=== PATIENT | female | born 1965 | race African-American/Black ===

== ENCOUNTER 2024-04-12 06:35 | Emergency (ER) | payer MEDICAID ==
[~2024-04-12] VITALS: Ht 157.5 cm; Wt 54.0 kg
[~2024-04-12 06:35] MED LIST: ALBU18HF2 IH; ASPI-1497 MT; CARV3.1242 MT; FLUT1DIS3 INH; FURO-151 MT; NAPR220C61 MT; NYST15PO4 TP
[2024-04-12] MEDS: PREDNISONE 20MG TABLET PO STA (06:55)
[2024-04-12 07:40] VITALS: PULSE 78; RESP 16; O2SAT 98
[2024-04-12] MEDS: IPRATROPIUM BROMIDE (0.02%) 0.5MG/2.5ML NEB HHN STA (07:40)
[2024-04-12] MEDS: ALBUTEROL (0.083%) 2.5MG/3ML NEB HHN STA (07:40)
[2024-04-12 07:58] LABS: BASOPHILS % 0.9 % (0.0-2.0); EOSINOPHILS % 5.7 % (0.0-5.0); HEMATOCRIT. 42.9 % (36.0-48.0); HEMOGLOBIN. 13.6 g/dL (12.0-16.0); LYMPHOCYTES % 35.1 % (20.0-50.0); MEAN CORPUSCULAR HEMOGLOBIN 25.6 pg (28.0-32.0); MEAN CORPUSCULAR HGB CONC 31.8 g/dL (31.0-37.0); MEAN CORPUSCULAR VOLUME 80.7 fL (81.0-99.0); MEAN PLATELET VOLUME 9.3 fl (7.4-10.4); MONOCYTES % 6.2 % (2.0-8.0); NEUTROPHILS % 52.1 % (40.0-76.0); PLATELET 241 x1000/uL (130-400); RED BLOOD CELL COUNT 5.32 mill/uL (4.2-5.4); RED CELL DISTRIBUTION WIDTH 17.7 % (11.6-14.6); WHITE BLOOD COUNT 7.8 x1000/uL (4.5-11.0)
[2024-04-12 08:00] VITALS: BP 151/89; PULSE 94; RESP 19; TEMP 97.7
[2024-04-12 08:04] LABS: CHLORIDE 109 mEq/L (98-107); POTASSIUM 4.1 mEq/L (3.5-5.1); SODIUM 140 mEq/L (136-145)
[2024-04-12] MEDS ORDERED: ALBU6.7H15 INH (08:04)
[2024-04-12 08:05] LABS: CARBON DIOXIDE 27 mEq/L (21-32)
[2024-04-12 08:06] LABS: CALCIUM 10.6 mg/dL (8.7-10.4)
[2024-04-12 08:10] LABS: CREATININE 1.1 mg/dL (0.6-1.0); GLUCOSE 103 mg/dL (70-105)
[2024-04-12 08:11] LABS: UREA NITROGEN BLOOD 14 mg/dL (9-23)
[2024-04-12] MEDS ORDERED: P20 MT (08:16)
== END 2024-04-12 09:10 | disposition home or self-care (01) ==
LOC: ER 06:35
DX: J44.9 Chronic obstructive pulmonary disease, unspecified (principal); I11.0 Hypertensive heart disease with heart failure; I50.9 Heart failure, unspecified; E11.9 Type 2 diabetes mellitus without complications; Z72.0 Tobacco use
CPT/HCPCS: 99284; 71045; 80048; 85025; 36415; 94640; J7512

== ENCOUNTER 2024-06-14 20:57 | Inpatient (IN) | payer MEDICAID ==
[~2024-06-14] VITALS: Ht 162.6 cm; Wt 46.1 kg
[~2024-06-14 20:57] MED LIST changes: +ALBU6.7H15 INH; -NYST15PO4 TP; +P20 MT
[2024-06-14 21:30] VITALS: PULSE 112; RESP 20; O2SAT 99
[2024-06-14] MEDS: ALBUTEROL (0.083%) 2.5MG/3ML NEB HHN STA (21:30)
[2024-06-14] MEDS: IPRATROPIUM BROMIDE (0.02%) 0.5MG/2.5ML NEB HHN STA (21:30)
[2024-06-14] MEDS: METHYLPREDNISOLONE SOD SUCC 125MG/2ML (ACT-O-VIAL) IV STA (21:33)
[2024-06-14] MEDS: MAGNESIUM 2 G PREMIX 50 ML IV STA (21:33)
[2024-06-14 21:46] LABS: BASOPHILS % 0.7 % (0.0-2.0); EOSINOPHILS % 1.2 % (0.0-5.0); HEMATOCRIT. 44.1 % (36.0-48.0); HEMOGLOBIN. 13.9 g/dL (12.0-16.0); LYMPHOCYTES % 13.2 % (20.0-50.0); MEAN CORPUSCULAR HEMOGLOBIN 25.3 pg (28.0-32.0); MEAN CORPUSCULAR HGB CONC 31.4 g/dL (31.0-37.0); MEAN CORPUSCULAR VOLUME 80.5 fL (81.0-99.0); MEAN PLATELET VOLUME 9.7 fl (7.4-10.4); MONOCYTES % 3.5 % (2.0-8.0); NEUTROPHILS % 81.4 % (40.0-76.0); PLATELET 335 x1000/uL (130-400); RED BLOOD CELL COUNT 5.48 mill/uL (4.2-5.4); RED CELL DISTRIBUTION WIDTH 17.2 % (11.6-14.6); WHITE BLOOD COUNT 9.1 x1000/uL (4.5-11.0)
[2024-06-14 21:48] LABS: BG BASE EXCESS -1.4 mmol/L (-2.0-2.0); BG CARBOXYHEMOGLOBIN 0.6 % (0.5-1.5); BG DEOXYHEMOGLOBIN 2.7 % (0.0-5.0); BG FRACTION INSPIRED OXYGEN 28; BG HCO3 ACT 22.2 mmol/L (22.0-26.0); BG METHEMOGLOBIN 0.3 % (0.0-1.5); BG OXYGEN SATURATION 97.3 % (92.0-98.5); BG OXYHEMOGLOBIN 96.4 % (94.0-97.0); BG PCO2 34.3 mmHg (35.0-45.0); BG PH 7.429 (7.350-7.450); BG PO2 91.8 mmHg (75.0-100.0); BG SAMPLE SITE RIGHT RADIAL; BG TOTAL HEMOGLOBIN 14.4 g/dL (12.0-18.0); BG VENT MODE NASAL CANNULA
[2024-06-14 21:52] LABS: CHLORIDE 113 mEq/L (98-107); POTASSIUM 6.1 mEq/L (3.5-5.1); SODIUM 141 mEq/L (136-145)
[2024-06-14 21:53] LABS: CALCIUM 10.7 mg/dL (8.7-10.4); CARBON DIOXIDE 25 mEq/L (21-32)
[2024-06-14 21:58] LABS: CREATININE 0.9 mg/dL (0.6-1.0); GLUCOSE 129 mg/dL (70-105); UREA NITROGEN BLOOD 9 mg/dL (9-23)
[2024-06-14 22:02] LABS: TROPONIN I HIGH SENSITIVITY 48 ng/L (3.0-34)
[2024-06-14 23:24] LABS: CHLORIDE 114 mEq/L (98-107); POTASSIUM 4.1 mEq/L (3.5-5.1); SODIUM 142 mEq/L (136-145)
[2024-06-14 23:25] LABS: CALCIUM 10.4 mg/dL (8.7-10.4); CARBON DIOXIDE 24 mEq/L (21-32)
[2024-06-14 23:30] LABS: CREATININE 0.9 mg/dL (0.6-1.0); GLUCOSE 130 mg/dL (70-105); UREA NITROGEN BLOOD 9 mg/dL (9-23)
[2024-06-15] MEDS ORDERED: IPRATROPIUM/ALBUTEROL 0.5-3(2.5)MG/3ML NEB HHN PRN (08:00)
[2024-06-15] MEDS ORDERED: DIPHENHYDRAMINE 50MG/ML VIAL IV PRN (08:00)
[2024-06-15] MEDS ORDERED: CLONIDINE 0.1MG TABLET PO PRN (08:00)
[2024-06-15] MEDS ORDERED: ACETAMINOPHEN 325MG TABLET PO PRN (08:00)
[2024-06-15] MEDS ORDERED: ONDANSETRON HCL 4MG/2ML INJ IV PRN (08:00)
[2024-06-15] MEDS: METHYLPREDNISOLONE SOD SUCC 125MG/2ML (ACT-O-VIAL) IV SCH (08:27)
[2024-06-15] MEDS: FUROSEMIDE 40MG/4ML VIAL IVP SCH (16:06)
[2024-06-16] MEDS ORDERED: DILTIAZEM HCL 30MG TABLET PO PRN (00:15)
[2024-06-16 00:30] VITALS: BP 145/88; PULSE 86; RESP 20; TEMP 36.418
[2024-06-16 07:16] LABS: CARBON DIOXIDE 26 mEq/L (21-32); CHLORIDE 107 mEq/L (98-107); POTASSIUM 4.7 mEq/L (3.5-5.1); SODIUM 138 mEq/L (136-145)
[2024-06-16 07:18] LABS: CALCIUM 10.4 mg/dL (8.7-10.4)
[2024-06-16 07:19] LABS: HEMATOCRIT. 40.1 % (36.0-48.0); HEMOGLOBIN. 12.4 g/dL (12.0-16.0); MEAN CORPUSCULAR VOLUME 80.5 fL (81.0-99.0); MEAN PLATELET VOLUME 9.8 fl (7.4-10.4); PLATELET 242 x1000/uL (130-400); RED BLOOD CELL COUNT 4.98 mill/uL (4.2-5.4); RED CELL DISTRIBUTION WIDTH 16.1 % (11.6-14.6); WHITE BLOOD COUNT 15.2 x1000/uL (4.5-11.0)
[2024-06-16 07:22] LABS: GLUCOSE 164 mg/dL (70-105); UREA NITROGEN BLOOD 19 mg/dL (9-23)
[2024-06-16 07:23] LABS: DIFFERENTIAL COMMENT 1
[2024-06-16 08:00] VITALS: BP 121/75; PULSE 86; RESP 16; TEMP 36.50292; O2SAT 99
[2024-06-16 11:41] VITALS: BP 104/64; PULSE 71; RESP 16; TEMP 36.33624; O2SAT 96
[2024-06-16 15:30] LABS: ANISOCYTOSIS 1+; PLATELET ESTIMATE NORMAL
[2024-06-16 16:00] VITALS: BP 121/77; PULSE 70; RESP 16; TEMP 36.22512; O2SAT 96
[2024-06-16 20:00] VITALS: BP 132/86; PULSE 71; RESP 18; TEMP 36.33624; O2SAT 96
[2024-06-16] MEDS: ACETAMINOPHEN 325MG TABLET PO PRN (21:23)
[2024-06-17] VITALS: BP 124/74; PULSE 67; RESP 18; TEMP 36.16956; O2SAT 97
[2024-06-17 04:00] VITALS: BP 121/77; PULSE 59; RESP 18; TEMP 36.44736; O2SAT 98
[2024-06-17 07:05] LABS: CARBON DIOXIDE 26 mEq/L (21-32); CHLORIDE 104 mEq/L (98-107); POTASSIUM 4.7 mEq/L (3.5-5.1); SODIUM 135 mEq/L (136-145)
[2024-06-17 07:06] LABS: CALCIUM 10.3 mg/dL (8.7-10.4)
[2024-06-17 07:11] LABS: CREATININE 0.8 mg/dL (0.6-1.0); GLUCOSE 198 mg/dL (70-105); UREA NITROGEN BLOOD 22 mg/dL (9-23)
[2024-06-17 07:12] LABS: TROPONIN I HIGH SENSITIVITY 24 ng/L (3.0-34)
[2024-06-17 08:00] VITALS: BP 124/47; PULSE 57; RESP 18; TEMP 37.00296; O2SAT 100
[2024-06-17 08:02] LABS: HEMATOCRIT. 40.7 % (36.0-48.0); HEMOGLOBIN. 12.7 g/dL (12.0-16.0); MEAN CORPUSCULAR HEMOGLOBIN 25.2 pg (28.0-32.0); MEAN CORPUSCULAR HGB CONC 31.1 g/dL (31.0-37.0); MEAN CORPUSCULAR VOLUME 80.9 fL (81.0-99.0); MEAN PLATELET VOLUME 10.6 fl (7.4-10.4); PLATELET 229 x1000/uL (130-400); RED BLOOD CELL COUNT 5.03 mill/uL (4.2-5.4); RED CELL DISTRIBUTION WIDTH 16.5 % (11.6-14.6); WHITE BLOOD COUNT 13.2 x1000/uL (4.5-11.0)
[2024-06-17] MEDS: AMLODIPINE 2.5MG TABLET PO SCH (08:22)
[2024-06-17 09:33] LABS: DIFFERENTIAL COMMENT 1
[2024-06-17 12:40] VITALS: BP 111/65; PULSE 62; RESP 18; TEMP 35.94732; O2SAT 96
[2024-06-17] MEDS ORDERED: AMLO2.5T45 PO (14:50)
[2024-06-17 15:05] VITALS: BP 111/65; PULSE 62; TEMP 96.7; O2SAT 96
[2024-06-17 17:23] LABS: PLATELET ESTIMATE NORMAL
[2024-06-17 17:24] LABS: ANISOCYTOSIS 1+
== END 2024-06-17 15:40 | disposition home or self-care (01) | DRG 140 ==
LOC: ER 21:00 → EDBEDREQTM 22:55 → EDBEDREQ 22:55 → 5WST 06-15 15:17 → 7WST 06-15 23:55
PROVIDERS: ADMIT Internal Medicine; ATTEND Internal Medicine
DX: J44.1 Chronic obstructive pulmonary disease with (acute) exacerbation (principal); J96.00 Acute respiratory failure, unspecified whether with hypoxia or hypercapnia; I42.9 Cardiomyopathy, unspecified; E11.9 Type 2 diabetes mellitus without complications; I11.0 Hypertensive heart disease with heart failure; E87.5 Hyperkalemia; I25.10 Atherosclerotic heart disease of native coronary artery without angina pectoris; I50.9 Heart failure, unspecified; F32.A Depression, unspecified; I25.2 Old myocardial infarction; Z63.4 Disappearance and death of family member; Z79.51 Long term (current) use of inhaled steroids; Z79.899 Other long term (current) drug therapy; Z87.891 Personal history of nicotine dependence
CPT/HCPCS: 36415; 36600; 71045; 80048; 82375; 82805; 82962; 83880; 84484; 85025; 85379; 93005; 93970; 94640; 99285; J1940; J2919; J3475